=== PATIENT | female | born 1985 | race African-American/Black ===

== ENCOUNTER 2021-10-10 17:21 | Emergency (ER) | payer SELFPAY | END 2021-10-10 18:30 | disposition home or self-care (01) | LOC: CSHERS 17:21 | DX: T81.30XA Disruption of wound, unspecified, initial encounter (principal) | CPT/HCPCS: 99283 ==

== ENCOUNTER 2022-06-07 16:51 | Emergency (ER) | payer SELFPAY ==
[2022-06-07 19:06] LABS: Bilirubin Neg (Negative); Blood, Urine 250 (Negative); Clarity Slightly Cloudy (Clear); Glucose, Urine (Dipstick) Normal (Negative); Ketone, Urine Negative (Negative); Leukocyte 100 (Negative); Nitrite Negative (Negative); Pregnancy Test - Urine (BHCG) Negative (Negative); Pregu Control Background? CLEAR/WHITE (CLR/WHITE); Pregu Control Bar Appear? YES (CONTROL BAR); Protein, Urine (Dipstick) 15 mg/dl (Neg-Trace); Specific Gravity 1.025 (1.002-1.036); Specific Gravity, Urine 1.025 (1.002-1.036)
[2022-06-07 19:13] LABS: Bacteria/HPF 2+ HPF (None Seen); Calcium Oxalate Crystals 1+ HPF (None Seen)
[2022-06-07] MEDS ORDERED: Acetaminophen 500 MG TAB ONE (19:16)
[2022-06-07] MEDS ORDERED: Ibuprofen 200 MG TAB ONE (19:16)
== END 2022-06-07 19:41 | disposition home or self-care (01) ==
LOC: CSHERS 16:51
DX: N39.0 Urinary tract infection, site not specified (principal); R31.9 Hematuria, unspecified
CPT/HCPCS: 81003; 81015; 81025; 99283